=== PATIENT | male | born 1970 | race Caucasian/White ===

== ENCOUNTER 2018-03-12 12:46 | Inpatient (IN) | payer MEDICAID ==
[2018-03-12 13:00] LABS: ADD MAN DIFF? NO
[2018-03-12 13:04] LABS: WHITE BLOOD COUNT 12.3 10^3/ul (4.8-10.8)
[2018-03-12 13:04] LABS: ABNORMAL IP MESSAGE 1; BASOPHIL # 0.1 10^3/ul (0.0-0.1); BASOPHILS % 0.8 % (0.0-2.0); EOSINOPHILS # 0.3 10^3/ul (0.0-0.5); HEMATOCRIT 45.9 % (42.0-52.0); HEMOGLOBIN 15.2 g/dl (14.0-18.0); LYMPHOCYTES # 2.3 10^3/ul (0.8-2.9); LYMPHOCYTES % 18.4 % (15.0-51.0); MEAN CORPUSCULAR HEMOGLOBIN 28.5 pg (29.0-33.0); MEAN CORPUSCULAR HGB CONC 33.1 g/dl (32.0-37.0); MEAN CORPUSCULAR VOLUME 86.1 fl (82.0-101.0); MEAN PLATELET VOLUME 10.8 fl (7.4-10.4); MONOCYTE # 1.6 10^3/ul (0.3-0.9); MONOCYTES % 12.7 % (0.0-11.0); NEUTROPHIL # 8.1 10^3/ul (1.6-7.5); PLATELET COUNT 321 10^3/UL (140-415); POSITIVE DIFF @See below; RED BLOOD COUNT 5.33 10^6/ul (4.70-6.10)
[2018-03-12] MEDS: DILTIAZEM 25 MG INJ IV (13:08)
[2018-03-12] MEDS: DILTIAZEM 30 MG TAB PO (13:17)
[2018-03-12 13:25] LABS: ANION GAP 14 (8-16); BLOOD UREA NITROGEN 20 mg/dl (7-20); CALCIUM 9.2 mg/dl (8.4-10.2); CARBON DIOXIDE 28 mmol/L (21-31); CHLORIDE 103 mmol/L (97-110); CREATININE 1.34 mg/dl (0.61-1.24); GLUCOSE 108 mg/dl (70-220); POTASSIUM 3.9 mmol/L (3.5-5.1); SODIUM 141 mmol/L (135-144)
[2018-03-12 13:37] LABS: TROPONIN-I 0.106 ng/ml (0.000-0.120)
[2018-03-12] MEDS ORDERED: ACETAMINOPHEN 325 MG TAB PO ×2 (14:00→15:30)
[2018-03-12] MEDS ORDERED: ONDANSETRON 4 MG INJ IV ×2 (14:00→15:30)
[2018-03-12] MEDS: LABETALOL HCL 20MG INJ IV (14:04)
[2018-03-12] MEDS: DILTIAZEM-D5W 125MG/125ML DRIP 125 ML IV (14:04)
[2018-03-12 14:30] LABS: AMPHETAMINE/METHAMPHETAMINE Negative (NEGATIVE); BARBITURATES Negative (NEGATIVE); BENZODIAZEPINES Negative (NEGATIVE); CANNABINOIDS Negative (NEGATIVE); OPIATES Negative (NEGATIVE)
[2018-03-12 14:41] LABS: COCAINE Positive (NEGATIVE)
[2018-03-12] MEDS ORDERED: NACL 0.9% 3 ML SYG IV (15:30)
[2018-03-12 15:36] LABS: B-TYPE NATRIURETIC PEPTIDE 5290 PG/ML (0-125)
[2018-03-12 16:17] LABS: FREE T4 (FREE THYROXINE) 1.08 ng/dl (0.64-1.79)
[2018-03-12 19:09] LABS: CREATINE KINASE 170 IU/L (23-200)
[2018-03-12 19:21] LABS: CK INDEX 1.6; CK-MB 2.69 ng/ml (0.0-2.4); TROPONIN-I 0.087 ng/ml (0.000-0.120)
[2018-03-12] MEDS: METOPROLOL 50 MG TAB PO (21:04)
[2018-03-13 01:21] LABS: CREATINE KINASE 162 IU/L (23-200)
[2018-03-13 01:35] LABS: CK INDEX 1.4; CK-MB 2.23 ng/ml (0.0-2.4); TROPONIN-I 0.113 ng/ml (0.000-0.120)
[2018-03-13 06:08] LABS: ADD MAN DIFF? NO
[2018-03-13 06:12] LABS: BASOPHIL # 0.1 10^3/ul (0.0-0.1); BASOPHILS % 0.8 % (0.0-2.0); EOSINOPHILS # 0.3 10^3/ul (0.0-0.5); EOSINOPHILS % 3.8 % (0.0-7.0); HEMATOCRIT 43.4 % (42.0-52.0); HEMOGLOBIN 14.2 g/dl (14.0-18.0); LYMPHOCYTES # 1.9 10^3/ul (0.8-2.9); LYMPHOCYTES % 23.9 % (15.0-51.0); MEAN CORPUSCULAR HEMOGLOBIN 28.6 pg (29.0-33.0); MEAN CORPUSCULAR HGB CONC 32.7 g/dl (32.0-37.0); MEAN CORPUSCULAR VOLUME 87.3 fl (82.0-101.0); MEAN PLATELET VOLUME 11.6 fl (7.4-10.4); MONOCYTE # 1.1 10^3/ul (0.3-0.9); MONOCYTES % 14.2 % (0.0-11.0); NEUTROPHIL # 4.5 10^3/ul (1.6-7.5); NEUTROPHILS % 56.9 % (39.0-77.0); PLATELET COUNT 280 10^3/UL (140-415); RED BLOOD COUNT 4.97 10^6/ul (4.70-6.10); RED CELL DISTRIBUTION WIDTH 13.2 % (11.5-14.5)
[2018-03-13 06:34] LABS: HEMOGLOBIN A1C 6.4 % (0-5.9)
[2018-03-13 07:00] LABS: ALANINE AMINOTRANSFERASE 27 IU/L (13-69); ALBUMIN 3.5 g/dl (3.3-4.9); ALBUMIN/GLOBULIN RATIO 1.12; ALKALINE PHOSPHATASE 59 IU/L (42-121); ANION GAP 14 (8-16); ASPARTATE AMINO TRANSFERASE 24 IU/L (15-46); BILIRUBIN,INDIRECT 0.5 mg/dl (0-1.1); BILIRUBIN,TOTAL 0.5 mg/dl (0.2-1.3); BLOOD UREA NITROGEN 24 mg/dl (7-20); CALCIUM 8.8 mg/dl (8.4-10.2); CARBON DIOXIDE 28 mmol/L (21-31); CHLORIDE 102 mmol/L (97-110); CHOL/HDL RATIO 3.5 RATIO; CHOLESTEROL 135 mg/dl (100-200); CREATININE 1.47 mg/dl (0.61-1.24); GLUCOSE 124 mg/dl (70-220); HDL CHOLESTEROL 38 mg/dl (27-67); LDL CHOLESTEROL,CALCULATED 67 mg/dl; MAGNESIUM 2.3 mg/dl (1.7-2.5); PHOSPHORUS 3.9 mg/dl (2.5-4.9); POTASSIUM 4.8 mmol/L (3.5-5.1); SODIUM 139 mmol/L (135-144); TOTAL PROTEIN 6.6 g/dl (6.1-8.1); TRIGLYCERIDES 149 mg/dl (0-149)
[2018-03-13] MEDS: METOPROLOL 50 MG TAB PO ×2 (07:53→09:24)
[2018-03-13] MEDS ORDERED: METOPROLOL 100 MG TAB PO ×2 (09:00→21:00)
[2018-03-13] MEDS: DILTIAZEM 30 MG TAB PO (12:03)
[2018-03-13] MEDS ORDERED: APIXABAN 5 MG TABLET PO (21:00)
== END 2018-03-13 17:10 | disposition home or self-care (01) | DRG 310 ==
LOC: 6WM 14:49 → E/R 12:46 → 6WM 13:54
DX: I48.0 Paroxysmal atrial fibrillation (principal); I12.9 Hypertensive chronic kidney disease with stage 1 through stage 4 chronic kidney disease, or unspecified chronic kidney disease; N18.9 Chronic kidney disease, unspecified; F17.210 Nicotine dependence, cigarettes, uncomplicated; Z91.19 Patient's noncompliance with other medical treatment and regimen
CPT/HCPCS: 36415; 71045; 80048; 80053; 80061; 80307; 82550; 82553; 83036; 83735; 83880; 84100; 84439; 84443; 84484; 85025; 93005; 93306; 96374; 99291-25